=== PATIENT | female | born 1960 | race Caucasian/White ===

== ENCOUNTER 2021-07-13 08:45 | Emergency (ER) | payer MEDICAID, SELFPAY ==
[2021-07-13 08:51] VITALS: BP 126/77; PULSE 100; RESP 16; TEMP 37.1; O2SAT 98; BMI 29.3
--- NOTE | 2021-07-13 09:22 | ED_ITS ---
HPI - General Adult General Chief complaint: General Medical <CASI North Last Filed: 07/13/21 09:53> Stated complaint: BREAST PAIN <CASI North Last Filed: 07/13/21 09:53> Time Seen by Provider: 07/13/21 09:16 <CASI North Last Filed: 07/13/21 09:53> Source: patient <CASI North Last Filed: 07/13/21 09:53> Mode of arrival: ambulatory <CASI North Last Filed: 07/13/21 09:53> History of Present Illness HPI narrative: 60-year-old female with past medical history depression, diabetes, presenting to the ED complaining of bilateral breast lumps x1 month. Reports they are painful. Admits last mammogram 10 years ago, recently moved to this area was scheduled for additional mammogram however missed due to relocating and has been unable to obtain doctor/[facility]. Denies fever, chills, skin changes, nipple discharge, personal history of breast CA. Admits on with history of breast CA <CASI North Last Filed: 07/13/21 09:53> Onset (ago): month(s) <CASI North Last Filed: 07/13/21 09:53> Related Data Home medications: Previous Rx's Medication Instructions Recorded acetaminophen 500 mg tablet 500 mg PO Q6H PRN #20 tab 07/13/21 (Tylenol Extra Strength) ibuprofen 800 mg tablet 800 mg PO Q8H PRN #14 tab 07/13/21 <CASI North Last Filed: 07/13/21 09:53> Allergies/adverse reactions: Allergies Allergy/AdvReac Type Severity Reaction Status Date / Time No Known Allergies Allergy Verified 07/13/21 08:56 <CASI North Last Filed: 07/13/21 09:53> Review of Systems Verdana 4l Review of Systems: Verdana 4d Verdana 4d Constitutional: No Fever, No Chills ENT/Mouth: No Ear Pain, No Nasal Congestion, No sore throat, No Rhinorrhea Cardiovascular: No Chest Pain, No SOB Respiratory: No Cough, No Sputum, No Wheezing, + breast pain/lumps Gastrointestinal: No NauseaNausea, No Vomiting, No Diarrhea, No Constipation, No Abdominal pain Genitourinary: No Hematuria, No Urgency, No Flank Pain Musculoskeletal: No joint pain, No Myalgias, No Joint Swelling Skin: No Skin Lesions, No rash Neuro: No Weakness, No Numbness <CASI North Last Filed: 07/13/21 09:53> Yes all other systems are reviewed and are negative <CASI North Last Filed: 07/13/21 09:53> [facility] Past Medical History Attestation statement: The following information was validated with the patient. <CASI Norht Last Filed: 07/13/21 09:53> Medical History: Medical History Depression Diabetes <CASI North Last Filed: 07/13/21 09:53> Social History Social History: Social History Advance Directives: No Advance Directives Information Provided: No <CASI North Last Filed: 07/13/21 09:53> Physical Exam Verdana 4l Vital Signs: Verdana 4d Verdana 4d Vital Signs: Verdana 4d Verdana 4Bd Last Vital Signs Verdana 4d Low [employer] New 4d Low [employer] New 4d Temp 98.7 F 07/13/21 08:51 Low Altitude [employer] New 4d Pulse 100 07/13/21 08:51 Low Altitude [employer] New 4d Resp 16 07/13/21 08:51 BP 126/77 07/13/21 08:51 Pulse Ox 98 07/13/21 08:51 BMI result Body Mass Index 29.3 <CASI North Last Filed: 07/13/21 09:53> Const: General: cooperative, healthy appearing and no acute distress <CAIS North Last Filed: 07/13/21 09:53> Orientation/consciousness: patient oriented x3 <CASI North Last Filed: 07/13/21 09:53> Limitations: no limitations <CASI North Last Filed: 07/13/21 09:53> HENMT: Head: Yes normal to inspection, Yes normocephalic and Yes atraumatic <CASI North - Last Filed: 07/13/21 09:53> Ears: hearing grossly normal bilaterally <CASI North - Last Filed: 07/13/21 09:53> General nose exam: Normal external nose present <CASI North - Last Filed: 07/13/21 09:53> Face and sinus: Yes normal facial exam <CASI North - Last Filed: 07/13/21 09:53> Eyes: General: appearance normal, both eyes and all related structures <CASI North - Last Filed: 07/13/21 09:53> EOM: EOMs intact bilaterally <CASI North - Last Filed: 07/13/21 09:53> Neck: Neck: Yes normal visual inspection and Yes no meningeal signs <CASI North - Last Filed: 07/13/21 09:53> Chest: Other: No breast fluctuance or induration, or cellulitis/warmth <CASI North - Last Filed: 07/13/21 09:53> Breast/axilla palpation: no axillary lymphadenopathy and abnormal palpation of the breast left tenderness (Multiple tender movable hard lumps at 11 & 1 o'clock regions) and areola normal; Negative for nipple discharge or induration, right tenderness (tender movable hard lump at 12 o'clock) and areola normal; Negative for nipple discharge or induration <CASI North - Last Filed: 07/13/21 09:53> Resp: Effort & Inspection: normal respiratory effort and no respiratory distress <CASI North - Last Filed: 07/13/21 09:53> Auscultation: clear to auscultation bilaterally <CASI North - Last Filed: 07/13/21 09:53> Cardio: Rate: regular rate <CASI North Last Filed: 07/13/21 09:53> Heart sounds: S1 normal heart sound present and S2 normal heart sound present <CASI North - Last Filed: 07/13/21 09:53> Skin: Rashes: no rashes <CASI North Last Filed: 07/13/21 09:53> Wounds: no wounds <CASI North Last Filed: 07/13/21 09:53> Neuro: General: patient oriented x3 and no meningeal signs <CASI North Last Filed: 07/13/21 09:53> Gait exam (Neuro): Normal gait present <CASI North Last Filed: 07/13/21 09:53> Extrem: General: Yes normal to inspection <CASI North Last Filed: 07/13/21 09:53> Medical Decision Making MDM Narrative Medical decision making narrative: 60-year-old female with past medical history depression, diabetes, presenting to the ED complaining of bilateral breast lumps x1 month. On exam vital signs stable, NAD/nontoxic, physical exam as above. Concern for breast CA vs fibroadenoma/cystic breast disease. No evidence of cellulitis. Low concern for abscess Discussed importance of close follow-up/scheduling mammogram outpatient, patient verbalized understanding of feel safe for discharge home at this time <CASI North Last Filed: 07/13/21 09:53> Medical Records Medical records reviewed: Yes I reviewed the patient's medical records. <CASI North Last Filed: 07/13/21 09:53> Lab Data Lab results reviewed: Yes I reviewed the patient's lab results. <CASI North Last Filed: 07/13/21 09:53> Discharge Plan Discharge Clinical Impression: Breast lump in female <CASI North Last Filed: 07/13/21 09:53> Patient Disposition: Home, Self-Care <CASI North Last Filed: 07/13/21 09:53> Instructions: Breast Self Exam for Women (ED), Breast Mass (ED) <CASI North Last Filed: 07/13/21 09:53> Additional Instructions: You have bilateral breast lumps, these need to be evaluated with a mammogram. Call OBGYN to make an appointment as soon as possible Your skin begins to change, dimple, look infected, is red/warm or you have nipple discharge please return to the ED immediately. take ibuprofen and Tylenol for pain Tiene bultos en los senos bilaterales, estos deben evaluarse con nathaly mamograf?a. Llame a OBGYN para hacer nathaly maría lo antes posible Lewis piel comienza a cambiar, forma hoyuelos, se ve infectada, est? reyes/c?maritza o tiene secreci?n del pez?n, regrese al servicio de urgencias de inmediato. [place] ibuprofeno y Tylenol para el dolor <CASI North - Last Filed: 07/13/21 09:53> Prescriptions: New ibuprofen 800 mg tablet 800 mg PO Q8H PRN (Reason: pain) Qty: 14 0RF acetaminophen [Tylenol Extra Strength] 500 mg tablet 500 mg PO Q6H PRN (Reason: pain or fever) Qty: 20 0RF <CASI North - Last Filed: 07/13/21 09:53> Referrals: Jt Romo MD [Physician] - 2 days <CASI North - Last Filed: 07/13/21 09:53> Interventions: ED Discharge Assessment Last Done: 07/13/21 10:13 <CASI North - Last Filed: 07/13/21 09:53> Discharge Date/Time: 07/13/21 10:17 <CASI North - Last Filed: 07/13/21 09:53> Print Language: Guatemalan <CASI North - Last Filed: 07/13/21 09:53>
[2021-07-13] MEDS: Ibuprofen 800 MG TABLET PO (10:10)
== END 2021-07-13 10:17 | disposition home or self-care (01) ==
PROVIDERS: Emergency Provider Emergency Medicine
DX: N64.4 Mastodynia (principal); N63.21 Unspecified lump in the left breast, upper outer quadrant; N63.22 Unspecified lump in the left breast, upper inner quadrant; N63.10 Unspecified lump in the right breast, unspecified quadrant; E11.9 Type 2 diabetes mellitus without complications
CPT/HCPCS: 99283; 99284

== ENCOUNTER → 2021-07-27 13:31 | Outpatient (BNVA) | payer OTHER, SELFPAY | PROVIDERS: Visit Provider Obstetrics & Gynecology | DX: N60.29 Fibroadenosis of unspecified breast (principal) | CPT/HCPCS: 99202 ==

== ENCOUNTER 2021-08-18 08:08 | Outpatient (REF) | payer OTHER, SELFPAY ==
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
== END 2021-08-18 08:09 | disposition home or self-care (01) ==
LOC: HO.MAMMO 08:08
PROVIDERS: Visit Provider Obstetrics & Gynecology
DX: N60.21 Fibroadenosis of right breast (principal); N60.22 Fibroadenosis of left breast
CPT/HCPCS: 76642; 77062; 77066

== ENCOUNTER → 2021-08-23 14:21 | Outpatient (BNVA) | payer MEDICAID, SELFPAY | PROVIDERS: Visit Provider Surgery | DX: N60.12 Diffuse cystic mastopathy of left breast (principal); N64.4 Mastodynia | CPT/HCPCS: 99202 ==

== ENCOUNTER 2021-12-15 13:04 | Outpatient (REF) | payer OTHER, SELFPAY ==
--- NOTE | ~2021-12-15 | MM_ITS ---
EXAMINATION: BONE DENSITOMETRY CLINICAL INDICATION: Menopause. COMPARISON: None (current study represents initial baseline exam). TECHNIQUE: Using a [employer] DXA System (software version: 13.1) manufactured by [employer], dual-energy x-ray absorptiometry was performed of the lumbar spine and left hip. The images are of good technical quality. Summary results are attached. FINDINGS: AP SPINE L1-L4: BMD 1.083 g/cm2, Z-score -0.3, T-score -0.8, normal. LEFT FEMUR, NECK: BMD 0.736 g/cm2, Z-score -1.4, T-score -2.2, osteopenia. LEFT FEMUR, TOTAL: BMD 0.920 g/cm2, Z-score -0.2, T-score -0.7, normal. IDENTIFIED RISK FACTORS: Early menopause, secondary osteoporosis. HISTORY OF FRACTURE: None listed. MEDICATIONS: None listed. MM/XR DEXA axial skeleton IMPRESSION: 1. DIAGNOSIS: Osteopenia based on the lowest T-score value of -2.2 in the femoral neck applying World Health Organization criteria. 2. 10-YEAR FRACTURE RISK PREDICTION, FRAX: Major osteoporotic fracture (clinical spine, forearm, hip or shoulder) 5.6%. Hip fracture 0.8%. 3. Treatment Recommendations: NOF guidelines recommend consideration for treatment in postmenopausal women and men age 50 and older presenting with the following: -A hip or vertebral (clinical or morphometric) fracture. -T-score less than or equal to -2.5 at the femoral neck or spine after appropriate evaluation to exclude secondary causes. -Low bone mass at the hip or spine and a 10-year fracture probability by FRAX of greater than or equal to 3% for hip fracture or greater than or equal to 20% for major osteoporotic fracture based on the [place] adapted WHO algorithm. 4. Other Recommendations: All treatment decisions require clinical judgment and consideration of individual patient factors, including patient preferences, comorbidities, previous drug use, risk factors not captured in the FRAX model (e.g. frailty, falls, vitamin D deficiency, increased bone turnover, interval significant decline in bone density) and possible under or overestimation of fracture risk by FRAX. Additional medical evaluation for secondary cause of low bone mineral density may be appropriate. FUTURE SCAN RECOMMENDATION: People with diagnosed cases of osteoporosis or at high risk for fracture should have regular bone mineral density tests. For patients eligible for Medicare, routine testing is allowed once every 2 years. The testing frequency can be increased to one year for patients who have rapidly progressing disease, those who are receiving or discontinuing medical therapy to restore bone mass, or have additional risk factors.
== END 2021-12-15 13:05 | disposition home or self-care (01) ==
LOC: HO.MAMMO 13:04
PROVIDERS: Visit Provider Nurse Practitioner Acute Care
DX: Z13.820 Encounter for screening for osteoporosis (principal); Z78.0 Asymptomatic menopausal state
CPT/HCPCS: 77080

== ENCOUNTER → 2021-12-27 13:24 | Outpatient (BNVA) | payer OTHER, SELFPAY | PROVIDERS: PCP Nurse Practitioner Family; Visit Provider Surgery | DX: N60.22 Fibroadenosis of left breast (principal) | CPT/HCPCS: 99212 ==

== ENCOUNTER 2022-02-07 08:42 | Outpatient (REF) | payer OTHER, SELFPAY ==
[2022-02-07 10:06] LABS: Cholesterol 248 mg/dL; HDL Cholesterol 49 mg/dL; LDL Cholesterol Calculated 158 mg/dl; Triglycerides 206 mg/dL
== END 2022-02-07 08:43 | disposition home or self-care (01) ==
LOC: HO.LAB 08:42
PROVIDERS: PCP Nurse Practitioner Family; Visit Provider Nurse Practitioner Family
DX: Z13.220 Encounter for screening for lipoid disorders (principal)
CPT/HCPCS: 36415; 80061

== ENCOUNTER 2022-02-28 11:47 | Outpatient (REF) | payer OTHER, SELFPAY ==
[2022-02-28 12:07] LABS: MANUAL DIFF FLAG NO
[2022-02-28 12:41] LABS: Basophils Percent Auto 0.3 % (0-2); Eosinophils Absolute Auto 0.1 X10*3/uL (0.0-0.4); Eosinophils Percent Auto 1.1 % (0-4); Hematocrit 34.8 % (37.0-47.0); Hemoglobin 11.5 g/dl (12.0-16.0); Imm Gran Abs Auto 0.03 X10*3/uL (0.00-0.03); Imm Gran Pct Auto 0.3 % (0.0-0.4); Lymphocytes Absolute Auto 2.2 X10*3/uL (1.2-4.9); Lymphocytes Percent Auto 24.7 % (20-40); Mean Corpuscular Hemoglobin 28.7 pg (27.0-33.0); Mean Corpuscular Volume 86.8 fL (80.0-98.0); Monocytes Absolute Auto 0.6 X10*3/uL (0.1-1.2); Monocytes Percent Auto 6.7 % (2-11); Neutrophils Absolute Auto 5.9 x10*3/uL (2.0-8.3); Neutrophils Percent Auto 66.9 % (45-73); Platelet Count 256 X10*3/uL (160-400); Red Blood Count 4.01 X10*6/uL (4.20-5.50); Red Cell Distribution Width 12.6 % (11.0-16.0); White Blood Count 8.9 X10*3/uL (4.8-10.8)
[2022-02-28 12:59] LABS: Estimated Average Glucose 171 mg/dL; Hemoglobin A1c % 7.6 %
[2022-02-28 13:05] LABS: Alanine Aminotransferase 14 U/L (0-31); Albumin Level 3.6 g/dL (3.5-5.0); Alkaline Phosphatase 125 U/L (39-117); Anion Gap 13 (12-20); Aspartate Amino Transferase 17 U/L (5-31); Bilirubin Total 0.3 mg/dL (0.0-1.0); Blood Urea Nitrogen 11 mg/dL (9-16); Calcium 9.3 mg/dL (8.4-10.2); Carbon Dioxide 28 mmol/L (22-29); Chloride 102 mmol/L (96-108); Estimated Glomerular Filt Rate > 60; Glucose Random 338 mg/dL (60-115); Potassium 4.4 mmol/L (3.3-5.1); Sodium 139 mmol/L (135-145)
[2022-02-28 13:29] LABS: TSH reflex Free T4 3.04 uIU/mL (0.32-4.0)
[2022-02-28 13:44] LABS: Creatinine Urine 69.32 mg/dL; Microalbum/Creatinine Ratio Ur 504.9 ug/mg cr
[2022-02-28 13:50] LABS: Folate 14.7 ng/mL (> or = 4.0); Vitamin B12 174 pg/mL (200-900)
[2022-03-06 15:57] LABS: Vitamin D 25-OH, D2 <4 ng/mL; Vitamin D 25-OH, D3 10 ng/mL; Vitamin D 25-OH, Total 10 ng/mL (30-100)
== END 2022-02-28 11:48 | disposition home or self-care (01) ==
LOC: HO.LAB 11:47
PROVIDERS: Nurse Practitioner Acute Care; PCP Nurse Practitioner Family; Visit Provider Nurse Practitioner
DX: Z01.818 Encounter for other preprocedural examination (principal); E11.9 Type 2 diabetes mellitus without complications
CPT/HCPCS: 36415; 80053; 82043; 82306; 82607; 82746; 83036; 84443; 85025; 99202; 99212

== ENCOUNTER 2022-04-05 13:12 | Outpatient (REF) | payer OTHER, SELFPAY ==
--- NOTE | ~2022-04-05 | MM_ITS ---
EXAMINATION: MM DIAGNOSTIC DIGITAL BREAST TOMOSYNTHESIS, BILATERAL CLINICAL INFORMATION: Short interval follow-up bilateral breasts. Posttraumatic changes left breast. Probable benign small oval asymmetry central right breast. The lifetime risk of breast cancer based on the Tyrer-Cuzick Model is 7%. COMPARISON: Mammography: 08/18/2021, outside mammography 07/20/2015 ([place], [place]). Bilateral breast ultrasound 08/18/2021. TECHNIQUE: Digital breast tomosynthesis is performed in both the craniocaudal and mediolateral oblique views along with computer-aided detection (CAD). Synthesized 2D images are generated from the tomosynthesis. FINDINGS: There are scattered areas of fibroglandular density (ACR BI-RADS breast composition Category b). There are no significant changes from prior exam 08/18/2021. Small oval asymmetric density mid right breast on MLO view is stable. There is no developing density or architectural abnormality. The widespread posttraumatic changes left breast with numerous oil cysts and some coarsening interstitial markings are again noted. No interval architectural abnormality. There are scattered benign round calcifications and some benign coarse calcifications. The axilla and skin contours are unremarkable. Results are provided to the patient at time of visit by the technologist. MM/MM tomosynthesis diagnostic BI IMPRESSION: No significant changes from prior exam. ASSESSMENT: BI-RADS 3: Probably Benign RECOMMENDATION: Diagnostic mammography at time of annual bilateral exam, due in 6 months. This patient's information was entered into a reminder system with a target due date for their next mammogram.
== END 2022-04-05 13:13 | disposition home or self-care (01) ==
LOC: HO.MAMMO 13:12
PROVIDERS: PCP Nurse Practitioner Family; Visit Provider Nurse Practitioner Family
DX: N60.29 Fibroadenosis of unspecified breast (principal); N64.89 Other specified disorders of breast
CPT/HCPCS: 77062; 77066

== ENCOUNTER 2022-05-16 08:43 | Outpatient (REF) | payer OTHER, SELFPAY ==
[2022-05-16 10:09] LABS: Hematocrit 36.5 % (37.0-47.0); Hemoglobin 11.7 g/dl (12.0-16.0); Mean Corpuscular HGB Conc 32.1 g/dl (31.0-35.0); Mean Corpuscular Hemoglobin 29.2 pg (27.0-33.0); Mean Platelet Volume 11.2 fL (9.4-12.3); Platelet Count 270 X10*3/uL (160-400); Red Blood Count 4.01 X10*6/uL (4.20-5.50); Red Cell Distribution Width 12.2 % (11.0-16.0); White Blood Count 8.8 X10*3/uL (4.8-10.8)
[2022-05-16 11:14] LABS: Vitamin D 25-OH Total 12.2 ng/mL (>30)
[2022-05-16 11:19] LABS: Alanine Aminotransferase 10 U/L (0-31); Albumin Level 3.8 g/dL (3.5-5.0); Alkaline Phosphatase 102 U/L (39-117); Anion Gap 13 (12-20); Aspartate Amino Transferase 17 U/L (5-31); Bilirubin Total 0.3 mg/dL (0.0-1.0); Blood Urea Nitrogen 12 mg/dL (9-16); Calcium 9.1 mg/dL (8.4-10.2); Carbon Dioxide 26 mmol/L (22-29); Chloride 107 mmol/L (96-108); Cholesterol 182 mg/dL; Estimated Glomerular Filt Rate > 60; Glucose Random 103 mg/dL (60-115); HDL Cholesterol 43 mg/dL; LDL Cholesterol Calculated 105 mg/dl; Potassium 4.2 mmol/L (3.3-5.1); Rheumatoid Factor < 15.0 IU/mL (<15.0); Sodium 142 mmol/L (135-145); Total Protein 6.8 g/dL (6.5-8.0); Triglycerides 174 mg/dL
[2022-05-16 13:09] LABS: Estimated Average Glucose 148 mg/dL; Hemoglobin A1c % 6.8 %
[2022-05-16 16:02] LABS: Vitamin B12 250 pg/mL (200-900)
[2022-05-16 16:04] LABS: Folate 12.9 ng/mL (> or = 4.0)
[2022-05-21 10:58] LABS: Anti Nuclear Antibody Screen POSITIVE (NEGATIVE); Anti Nuclear Antibody Titer 1:40 titer
== END 2022-05-16 08:44 | disposition home or self-care (01) ==
LOC: HO.LAB 08:43
PROVIDERS: PCP Nurse Practitioner Family; Visit Provider Nurse Practitioner Family
DX: R79.89 Other specified abnormal findings of blood chemistry (principal); E53.8 Deficiency of other specified B group vitamins; E11.9 Type 2 diabetes mellitus without complications; M25.50 Pain in unspecified joint; E78.5 Hyperlipidemia, unspecified
CPT/HCPCS: 36415; 80053; 80061; 82306; 82607; 82746; 83036; 85027; 86038; 86039; 86431

== ENCOUNTER 2022-06-07 10:28 | Outpatient (RCR) | payer OTHER, SELFPAY ==
[2022-06-07 10:41] VITALS: BP 141/70; PULSE 88
--- NOTE | 2022-06-07 11:55 | MHC.PT.EP ---
[facility] [place] Office [place] Office [place] Office [address] [phone] F: [phone] F: [phone] F: [phone] F: [phone] Physical Therapy Plan of Care Date of Evaluation: Date of Surgery: Diagnosis: Pain in R shoulder, Pain in L shoulder Assessment: 61 y/o RHD female referred to PT with pain in B shoulders. She has a PMH significant for HTN, DM, CVA, neuropathy. 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 S/s consistent with B shoulder impingement secondary to decreased B shoulder ROM, decreased B shoulder strength, increased pain, and impaired postural awareness. Recommend PT 2x/week for 5 weeks to address impairments, implement HEP, and optimize functional mobility. Frequency and Duration: The patient will be seen 2x/week for 5 weeks Short Term Goals: 3 week Compliant with HEP Pt will be able to don/doff coat with pain < 4/10 Mcc Goals: 5 weeks I with HEP and self management of sx Improve B shoulder AROM to 120 to facilaite reaching overhead Improve B shoulder strength to 4-/5 to faciliate carrying Treatment Plan: Modalities to reduce pain, spasms and effusion. Manual therapy to restore motion and function. Therapeutic exercise to improve strength and flexibility. Neuromuscular re-education for posture and balance. Therapeutic activities to return to functional activities of daily living. Electronically signed by: Madina Su PT Please sign and return to therapist. Thank you for your referral.
--- NOTE | 2022-07-27 13:45 | MHC.PT.DC ---
[facility] [place] Office [place] Office [place] Office [address] Tera Gibbs [address] [phone] F: [phone] F: [phone] F: [phone] F: [phone] Physical Therapy Discharge Report Diagnosis: Pain in R shoulder, Pain in L shoulder Date of Surgery: Date of Evaluation: 06/07/22 Date of Discharge: 07/27/22 Treatments to Date: 1 Cancellations to Date: 0 No Shows to Date: 3 Discharge Status: Visit Non-compliance Discharge Summary: Pt did not f/u with further visit following initial evaluation. She had 3 consecutive no show visits and is d/c d/t noncompliance with scheduling policy. Electronically signed by: Madina Su PT Please sign and return to therapist. Thank you for your referral.
== END 2022-07-27 13:45 | disposition home or self-care (01) ==
LOC: HO.PT 10:28
PROVIDERS: PCP Nurse Practitioner Family; Visit Provider Nurse Practitioner Family
DX: M25.511 Pain in right shoulder (principal); M25.512 Pain in left shoulder
CPT/HCPCS: 97110; 97162

== ENCOUNTER 2022-10-18 00:31 | Emergency (ER) | payer OTHER, SELFPAY ==
--- NOTE | ~2022-10-18 | CT_ITS ---
EXAMINATION: CT ABDOMEN AND PELVIS WITH CONTRAST CLINICAL INFORMATION: Acute diverticulitis, left lower quadrant pain COMPARISON: None available. TECHNIQUE: Multidetector volumetric images were obtained from the superior aspect of the liver through the pubic symphysis following administration 85 mL of Omnipaque 350 intravenous contrast. Sagittal and coronal reformatted images were obtained on the technologist's workstation. Oral contrast: No This CT examination was performed using dose optimization techniques as appropriate, variously including the following: *Automated exposure control *Adjustment of mA and/or kV according to patient size (this includes techniques or standardized protocols for targeted exams where dose is matched to indication/reason for exam; i.e. extremities or head) *Use of iterative reconstruction technique DLP: 804 mGy-cm FINDINGS: LUNG BASES: The visualized lung bases are unremarkable. LIVER, GALLBLADDER, AND BILIARY TREE: The liver is normal in size, shape, and attenuation. No focal hepatic lesion or biliary ductal dilatation is present. The gallbladder is unremarkable with no evidence of radiopaque gallstones, gallbladder wall thickening, or obvious pericholecystic inflammatory changes. PANCREAS: Unremarkable. SPLEEN: Small splenic hypodensity is suggestive of a cyst. ADRENAL GLANDS: Unremarkable. KIDNEYS AND URETERS: Bilateral nephrograms are symmetric. No hydronephrosis or obstructing calculus identified. BLADDER: Unremarkable. GASTROINTESTINAL TRACT: There is prominent colonic wall thickening extending from the mid descending to the distal sigmoid colon with adjacent stranding, suspicious for colitis. Trace colonic diverticulosis. Small amount of pelvic free fluid. No evidence of bowel obstruction. Appendix appears nondilated. No free air is seen. ABDOMINAL WALL: No significant hernia is appreciated. LYMPH NODES: Normal. VASCULAR: Mild atherosclerotic calcifications. Small peripherally calcified splenic artery aneurysm. PELVIC VISCERA: Grossly unremarkable. OSSEOUS STRUCTURES: Unremarkable. CT/CT abdomen pelvis w IV con IMPRESSION: Colitis extending from the mid descending to the distal sigmoid colon, which may be infectious/inflammatory. Small amount of pelvic free fluid, presumably reactive.
[2022-10-18 01:11] VITALS: BP 230/95; PULSE 102; RESP 18; TEMP 37.4; O2SAT 99; BMI 32.6
[2022-10-18 02:17] LABS: MANUAL DIFF FLAG NO
[2022-10-18 02:18] LABS: Basophils Percent Auto 0.3 % (0-2); Eosinophils Absolute Auto 0.1 X10*3/uL (0.0-0.4); Eosinophils Percent Auto 0.5 % (0-4); Hematocrit 39.7 % (37.0-47.0); Imm Gran Abs Auto 0.07 X10*3/uL (0.00-0.03); Imm Gran Pct Auto 0.5 % (0.0-0.4); Lymphocytes Absolute Auto 1.9 X10*3/uL (1.2-4.9); Lymphocytes Percent Auto 12.4 % (20-40); Mean Corpuscular HGB Conc 32.7 g/dl (31.0-35.0); Mean Corpuscular Hemoglobin 28.7 pg (27.0-33.0); Mean Corpuscular Volume 87.6 fL (80.0-98.0); Mean Platelet Volume 10.8 fL (9.4-12.3); Monocytes Absolute Auto 0.7 X10*3/uL (0.1-1.2); Monocytes Percent Auto 4.8 % (2-11); Neutrophils Absolute Auto 12.4 x10*3/uL (2.0-8.3); Neutrophils Percent Auto 81.5 % (45-73); Platelet Count 281 X10*3/uL (160-400); Red Blood Count 4.53 X10*6/uL (4.20-5.50); Red Cell Distribution Width 12.7 % (11.0-16.0); White Blood Count 15.2 X10*3/uL (4.8-10.8)
[2022-10-18 03:49] LABS: Appearance Urine Clear; Color Urine Yellow; Glucose Urine UA >=1000 mg/dL (Negative); Leukocyte Esterase Urine Negative (Negative); Nitrite Urine Negative (Negative); UMIC TRIGGER UACC YES; Urine Blood Small (1+) (Negative); Urine Ketones Negative (Negative); Urine Protein 300 (3+) mg/dL (Neg-Trace)
[2022-10-18 03:52] LABS: Bacteria Urine None Seen (None Seen); Hyaline Casts Urine 0-2 /LPF (0-2); Squamous Epithelial Cell Urine 0-2 /HPF (0-2); WBC Urine 0-5 /HPF (0-5)
--- NOTE | 2022-10-18 03:58 | ED.ABDPAIN ---
HPI - Abdominal Pain General Chief Complaint: Abdominal Pain Stated Complaint: stomach pain, blood in stool Time Seen by Provider: 10/18/22 02:08 Source: patient Mode of arrival: ambulatory Limitations: no limitations History of Present Illness HPI narrative: Patient's diabetes, hypertension no known GI complaints in the past had UTI symptoms 2 weeks ago treated got better last 3 days noticed pain in the lower abdomen more on the left side specially when she walks got worse in last 24 hours with nausea and vomiting did not eat much all day no fever no chills and noticed some bright red blood when she is moving her bowels Related Data Previous Rx's Medication Instructions Recorded walker (Ultra-Light Rollator misc) #1 ea 12/12/21 flash glucose scanning reader #1 ea 01/25/22 (FreeStyle Ranjana 2 [place]) peg 3350-electrolytes 236 240 ml PO Q10M 1 day #4,000 mL 02/28/22 gram-22.74 gram-6.74 gram-5.86 gram solution (VERTILAS) flash glucose sensor (FreeStyle #2 ea 05/09/22 Ranjana 2 Sensor kit) lidocaine 5 % topical patch 1 patch topical DAILY #15 ea 05/09/22 pen needle, diabetic 31 gauge x #50 ea 05/09/22/ (BD Ultra-Fine Mini Pen Needle) calcium carbonate 500 mg calcium 500 mg PO DAILY 90 days #90 tabs 05/10/22 (1,250 mg) tablet (Oyster Shell Calcium) lisinopril 2.5 mg tablet 5 mg PO DAILY #90 tabs 06/02/22 acetaminophen 500 mg tablet 500 mg PO Q6H PRN pain or fever 06/07/22 (Tylenol Extra Strength) #30 tabs aspirin 81 mg tablet,delayed 81 mg PO DAILY #90 tabs 06/07/22 release blood sugar diagnostic (FreeStyle #100 ea 06/07/22 Lite Strips) cyclobenzaprine 5 mg tablet 5 mg PO BEDTIME PRN muscle spasm 06/07/22 #14 tabs diclofenac sodium 1 % topical gel 4 g topical QID #100 grams 06/07/22 (Voltaren Arthritis Pain) dulaglutide 1.5 mg/0.5 mL 1.5 mg (0.5 mL) subcut QWEEK #8 mL 06/07/22 subcutaneous pen injector (Trulicity) ibuprofen 800 mg tablet 800 mg PO Q8H PRN pain #30 tabs 06/07/22 insulin glargine 100 unit/mL (3 60 unit (0.6 mL) subcut QPM #15 mL 06/07/22 mL) subcutaneous pen (Lantus Solostar U-100 Insulin) pravastatin 10 mg tablet 10 mg PO BEDTIME #90 tabs 06/07/22 quetiapine 100 mg tablet 100 mg PO BEDTIME #90 tabs 06/07/22 gabapentin 300 mg capsule 300 mg PO BEDTIME #90 caps 09/13/22 cholecalciferol (vitamin D3) 50 50 mcg PO DAILY #90 tabs 09/22/22 mcg (2,000 unit) tablet cyanocobalamin (vitamin B-12) 1,000 mcg PO DAILY #90 caps 10/04/22 1,000 mcg capsule ropinirole 0.5 mg tablet 0.5 mg PO BID #120 tabs 10/04/22 ciprofloxacin HCl 500 mg tablet 500 mg PO BID #20 tabs 10/18/22 (Cipro) metronidazole 500 mg tablet 500 mg PO BID 10 days #20 tabs 10/18/22 ondansetron 4 mg disintegrating 4 mg PO Q6-8H PRN nausea and 10/18/22 tablet vomiting #10 tabs tramadol 50 mg tablet 50 mg PO Q6H PRN pain #20 tabs 10/18/22 Allergies Allergy/AdvReac Type Severity Reaction Status Date / Time No Known Allergies Allergy Verified 05/10/22 14:07 Review of Systems Review of Systems Yes all other systems are reviewed and are negative PMFSH Past Medical History Medical History Arthritis of left shoulder region CVA (cerebral vascular accident) Cyst of breast, left, diffuse fibrocystic Degenerative lumbar disc Depression Diabetes Diabetic neuropathy Encounter to establish care Screening for hyperlipidemia Type II diabetes mellitus Surgical History Tubal ligation status Family History Family History Maternal Aunt Breast CA Maternal Grandmother Vaginal cancer Social History Social History Housing: House Alcohol intake: never Patient Tobacco Use Status: Current someday Tobacco user Smoked in Last 30 Days: No e-Cigarette/Vaping Use: Never Used Use of substances other than those prescribed or required for medical reasons: No Advance Directives: No Advance Directives Information Provided: Yes Current occupational status: unemployed and retired Cognitive needs: No Hearing needs: No Vision needs: Yes Physical Exam ED Vital Signs: Vital Signs - 24 hr 10/18/22 01:11 10/18/22 05:40 Temperature 99.3 F 97.8 F Pulse Rate 102 H 99 Respiratory Rate 18 19 Blood Pressure 230/95 H 192/83 H Pulse Oximetry 99 96 Oxygen Delivery Method Room Air BMI result Body Mass Index 32.6 Appearance: Alert. Oriented X3. No acute distress. Eyes: No pallor or icterus ENT: Pharynx normal. Oral Mucosa moist Neck: Normal inspection. Neck supple. CVS: Normal heart rate and rhythm. Pulses normal. Respiratory: No respiratory distress. Equal air entry bilateral, no wheezing/rales/rhonchi Abdomen: Soft guarding and tenderness left lower quadrant, Bowel sounds are present, no mass palpable, no CVA tenderness Skin: Skin warm and dry. Normal skin color. Normal skin turgor. Extremities: No lower extremity edema. No calf tenderness Neuro: Oriented X 3. No motor deficit. Medical Decision Making Lab Data MDM Lab Attestation statement: I reviewed the patient's lab results. 10/18/22 02:12 Labs: Lab Results 10/18/22 10/18/22 10/18/22 Range/Units 02:12 03:26 04:18 WBC 15.2 H (4.8-10.8) X10*3/uL RBC 4.53 (4.20-5.50) X10*6/uL Hgb 13.0 (12.0-16.0) g/dl Hct 39.7 (37.0-47.0) % MCV 87.6 (80.0-98.0) fL MCH 28.7 (27.0-33.0) pg MCHC 32.7 (31.0-35.0) g/dl RDW 12.7 (11.0-16.0) % Plt Count 281 (160-400) X10*3/uL MPV 10.8 (9.4-12.3) fL Immature Gran % (Auto) 0.5 H (0.0-0.4) % Neut % (Auto) 81.5 H (45-73) % Lymph % (Auto) 12.4 L (20-40) % [place] % (Auto) 4.8 (2-11) % Eos % (Auto) 0.5 (0-4) % Baso % (Auto) 0.3 (0-2) % Lymph # (Auto) 1.9 (1.2-4.9) X10*3/uL [place] # (Auto) 0.7 (0.1-1.2) X10*3/uL Eos # (Auto) 0.1 (0.0-0.4) X10*3/uL Baso # (Auto) 0.0 (0.0-0.2) X10*3/uL Abs Immat Gran (auto) 0.07 H (0.00-0.03) X10*3/uL Absolute Neuts (auto) 12.4 H (2.0-8.3) x10*3/uL Absolute Nucleated RBC 0.000 (0.0-0.012) X10*3/uL Nucleated RBC % (auto) 0.0 (0.0-0.2) /100WBC Sodium 141 (135-145) mmol/L Potassium 4.8 (3.3-5.1) mmol/L Chloride 108 (96-108) mmol/L Carbon Dioxide 23 (22-29) mmol/L Anion Gap 15 (12-20) BUN 14 (9-16) mg/dL Creatinine 0.89 (0.5-1.4) mg/dL Estim Creat Clear Calc 70.5 Estimated GFR > 60 Random Glucose 270 H (60-115) mg/dL Calcium 9.3 (8.4-10.2) mg/dL Total Bilirubin 0.5 (0.0-1.0) mg/dL AST 24 (5-31) U/L ALT 10 (0-31) U/L Alkaline Phosphatase 126 H (39-117) U/L Total Protein 7.2 (6.5-8.0) g/dL Albumin 3.7 (3.5-5.0) g/dL Lipase 14 (8-78) U/L Urine Color Yellow Urine Appearance Clear Urine pH 7.0 (5.0-9.0) Ur Specific [place] 1.020 (1.005-1.025) Urine Protein 300 (3+) H (Neg-Trace) mg/dL Urine Glucose (UA) >=1000 H (Negative) mg/dL Urine Ketones Negative (Negative) mg/dL Urine Blood Small (1+) H (Negative) Urine Nitrite Negative (Negative) Ur Leukocyte Esterase Negative (Negative) Urine RBC 6-10 H (0-2) /HPF Urine WBC 0-5 (0-5) /HPF Ur Squamous Epith Cells 0-2 (0-2) /HPF Urine Bacteria None Seen (None Seen) Hyaline Casts 0-2 (0-2) /LPF Medications Administered Generic Name Dose Route Start Last Admin Trade Name Freq PRN Reason Stop Dose Admin Ceftriaxone Sodium 1 gm/ 50 mls @ 100 mls/hr 10/18/22 06:27 10/18/22 06:37 Sodium Chloride IV 10/18/22 06:56 100 mls/hr ONCE ONE Administration Discontinued Medications Generic Name Dose Route Start Last Admin Trade Name Freq PRN Reason Stop Dose Admin Sodium Chloride 1,000 mls @ 999 mls/hr 10/18/22 04:05 10/18/22 05:25 Ns IV 10/18/22 05:05 Infused .Q1H1M ONE Infusion Iohexol 85 ml 10/18/22 05:08 10/18/22 05:08 Iohexol 350 Mg/Ml 100 Ml Infus..Btl IV 10/18/22 05:09 85 ml ONCE ONE Administration Morphine Sulfate 4 mg 10/18/22 04:05 10/18/22 04:19 Morphine Sulfate 4 Mg/Ml Cartridge IVPUSH 10/18/22 04:06 4 mg ONCE ONE Administration Protocol Ondansetron HCl 4 mg 10/18/22 04:05 10/18/22 04:19 Ondansetron Hcl 4 Mg/2 Ml Vial IVPUSH 10/18/22 04:06 4 mg ONCE ONE Administration Discharge Plan Discharge Clinical Impression: Gastroenteritis Patient Disposition: Home, Self-Care Instructions: Gastroenteritis (ED) Additional Instructions: Drink plenty of fluids Medicine as prescribed for infection possible you have E coli Meds for nausea and pain Report to ER if not better Prescriptions: New ciprofloxacin HCl [Cipro] 500 mg tablet 500 mg PO BID Qty: 20 0RF metronidazole 500 mg tablet 500 mg PO BID 10 Days Qty: 20 0RF ondansetron 4 mg tablet,disintegrating 4 mg PO Q6-8H PRN (Reason: nausea and vomiting) Qty: 10 0RF tramadol 50 mg tablet 50 mg PO Q6H PRN (Reason: pain) Qty: 20 0RF No Action (DME) FreeStyle Ranjana 2 [place] Misc See Rx Instructions .Route Qty: 1 0RF Rx Instructions: As directed lidocaine 5 % adhesive patch,medicated 1 patch topical DAILY Qty: 15 0RF Rx Instructions: leave on most painful area for up to 12 hrs (DME) FreeStyle Ranjana 2 Sensor Kit See Rx Instructions .Route Qty: 2 4RF Rx Instructions: As directed (DME) pen needle, diabetic [BD Ultra-Fine Mini Pen Needle] 31 gauge x 3/16 needle See Rx Instructions subcut TID Qty: 50 2RF Rx Instructions: As directed lisinopril 2.5 mg tablet 5 mg PO DAILY Qty: 90 0RF quetiapine 100 mg tablet 100 mg PO BEDTIME Qty: 90 0RF pravastatin 10 mg tablet 10 mg PO BEDTIME Qty: 90 2RF insulin glargine [Lantus Solostar U-100 Insulin] 100 unit/mL (3 mL) insulin pen 60 unit subcut QPM Qty: 15 2RF ibuprofen 800 mg tablet 800 mg PO Q8H PRN (Reason: pain) Qty: 30 0RF Trulicity 1.5 mg/0.5 mL pen injector 1.5 mg subcut QWEEK Qty: 8 2RF diclofenac sodium [Voltaren Arthritis Pain] 1 % gel 4 g topical QID Qty: 100 3RF Rx Instructions: apply to single knee, ankle, foot; for foot includes sole/toes/top of foot cyclobenzaprine 5 mg tablet 5 mg PO BEDTIME PRN (Reason: muscle spasm) Qty: 14 0RF (DME) FreeStyle Lite Strips Strip See Rx Instructions Not Applicable DAILY Qty: 100 11RF Rx Instructions: As directed aspirin 81 mg tablet,delayed release (DR/EC) 81 mg PO DAILY Qty: 90 2RF acetaminophen [Tylenol Extra Strength] 500 mg tablet 500 mg PO Q6H PRN (Reason: pain or fever) Qty: 30 0RF gabapentin 300 mg capsule 300 mg PO BEDTIME Qty: 90 0RF cholecalciferol (vitamin D3) 50 mcg (2,000 unit) tablet 50 mcg PO DAILY Qty: 90 0RF ropinirole 0.5 mg tablet 0.5 mg PO BID Qty: 120 0RF cyanocobalamin (vitamin B-12) 1,000 mcg capsule 1,000 mcg PO DAILY Qty: 90 0RF (DME) Ultra-Light Rollator Misc See Rx Instructions .Route Qty: 1 0RF Rx Instructions: As directed calcium carbonate [Oyster Shell Calcium] 500 mg calcium (1,250 mg) tablet 500 mg PO DAILY 90 Days Qty: 90 2RF peg 3350-electrolytes [[place]] 236-22.74-6.74 -5.86 gram recon soln 240 ml PO Q10M 1 Days Qty: 4000 0RF Rx Instructions: until fecal effluent is clear; do not exceed a total volume of 2,000 mL
[2022-10-18] MEDS: ondansetron HCL 4 MG/2 ML VIAL IVPUSH (04:19)
[2022-10-18] MEDS: Morphine Sulfate 4 MG/ML CARTRIDGE IVPUSH (04:19)
[2022-10-18] MEDS: 0.9 % Sodium Chloride 1,000 ML 999 ML IV (04:19)
[2022-10-18 04:46] LABS: Alanine Aminotransferase 10 U/L (0-31); Albumin Level 3.7 g/dL (3.5-5.0); Alkaline Phosphatase 126 U/L (39-117); Anion Gap 15 (12-20); Aspartate Amino Transferase 24 U/L (5-31); Bilirubin Total 0.5 mg/dL (0.0-1.0); Blood Urea Nitrogen 14 mg/dL (9-16); Calcium 9.3 mg/dL (8.4-10.2); Carbon Dioxide 23 mmol/L (22-29); Chloride 108 mmol/L (96-108); Creatinine Clr Calc Pharmacy 70.5; Estimated Glomerular Filt Rate > 60; Glucose Random 270 mg/dL (60-115); Lipase 14 U/L (8-78); Potassium 4.8 mmol/L (3.3-5.1); Sodium 141 mmol/L (135-145); Total Protein 7.2 g/dL (6.5-8.0)
[2022-10-18] MEDS: iohexoL 350 MG/ML 100 ML INFUS..BTL 85 ML IV (05:08)
[2022-10-18 05:40] VITALS: BP 192/83; PULSE 99; RESP 19; TEMP 36.6; O2SAT 96
[2022-10-18] MEDS: cefTRIAXone sodium 1 GM in 0.9 % Sodium Chloride 50 ML IV (06:37)
== END 2022-10-18 07:39 | disposition home or self-care (01) ==
PROVIDERS: Emergency Provider Internal Medicine
DX: R10.32 Left lower quadrant pain (principal); E11.9 Type 2 diabetes mellitus without complications; I10 Essential (primary) hypertension; E78.5 Hyperlipidemia, unspecified; F17.200 Nicotine dependence, unspecified, uncomplicated; Z86.73 Personal history of transient ischemic attack (TIA), and cerebral infarction without residual deficits; Z79.899 Other long term (current) drug therapy; Z79.82 Long term (current) use of aspirin; Z79.4 Long term (current) use of insulin; Z79.02 Long term (current) use of antithrombotics/antiplatelets
CPT/HCPCS: 36415; 74177; 80053; 81001; 83690; 85025; 96361; 96374; 96375; 99284; 99285; J0696; J2270; J2405; Q9967